=== PATIENT | male | born 1950 | race Caucasian/White ===

== ENCOUNTER 2018-03-20 14:00 | Emergency (ER) | payer MEDICARE, OTHER ==
[~2018-03-20] VITALS: Ht 172.7 cm; Wt 55.0 kg
[2018-03-20 18:23] LABS: HEMATOCRIT. 28.8 % (42.0-52.0); HEMOGLOBIN. 9.5 g/dL (14.0-18.0); MEAN CORPUSCULAR HEMOGLOBIN 29.4 pg (28.0-32.0); MEAN CORPUSCULAR VOLUME 88.9 fL (80.0-94.0); PLATELET 535 x1000/uL (130-400); RED BLOOD CELL COUNT 3.23 mill/uL (4.7-6.1); RED CELL DISTRIBUTION WIDTH 16.3 % (11.6-14.6)
[2018-03-20 18:33] LABS: CHLORIDE 93 mEq/L (98-107)
[2018-03-20 18:58] LABS: HEPATITIS B SURFACE ANTIGEN NEGATIVE
[2018-03-20 19:17] LABS: CLARITY URINE CLEAR (CLEAR); COLOR URINE YELLOW (YELLOW); KETONES URINE NEGATIVE (NEGATIVE); LEUKOCYTE ESTERASE URINE NEGATIVE (NEGATIVE); NITRITE URINE NEGATIVE (NEGATIVE); OCCULT BLOOD URINE NEGATIVE (NEGATIVE); PH URINE 7.5 (4.5-8.0); PROTEIN URINE NEGATIVE (NEGATIVE)
[2018-03-20 19:26] LABS: HEPATITIS B CORE AB IGM NEGATIVE
[2018-03-20 19:28] LABS: HEPATITIS A AB IGM NEGATIVE (NEGATIVE)
[2018-03-20 19:29] LABS: *AMPHETAMINES SCREEN URINE NEGATIVE (NEGATIVE); *BARBITURATES SCREEN URINE NEGATIVE (NEGATIVE)
[2018-03-20 19:30] LABS: *BENZODIAZEPINES SCREEN URINE NEGATIVE (NEGATIVE); *COCAINE SCREEN URINE NEGATIVE (NEGATIVE); CANNABINOID URINE SCREEN NEGATIVE (NEGATIVE); METHADONE URINE SCREEN NEGATIVE (NEGATIVE); OPIATES URINE SCREEN NEGATIVE (NEGATIVE); PHENCYCLIDINE URINE SCREEN NEGATIVE (NEGATIVE)
[2018-03-20 20:26] LABS: PLATELET ESTIMATE INCREASED
[2018-03-21] MEDS ORDERED: ACETAMINOPHEN 325MG TABLET PO ONE (02:15)
[2018-03-21 16:45] VITALS: BP 147/92
== END 2018-03-21 17:18 ==
LOC: ER 15:03
DX: S05.12XA Contusion of eyeball and orbital tissues, left eye, initial encounter (principal); M25.512 Pain in left shoulder; Y04.2XXA Assault by strike against or bumped into by another person, initial encounter; Y93.89 Activity, other specified; Y92.410 Unspecified street and highway as the place of occurrence of the external cause; E86.0 Dehydration; E87.1 Hypo-osmolality and hyponatremia; R53.83 Other fatigue; D72.829 Elevated white blood cell count, unspecified; D64.9 Anemia, unspecified; R46.0 Very low level of personal hygiene; Z59.0 Homelessness; Z86.73 Personal history of transient ischemic attack (TIA), and cerebral infarction without residual deficits
CPT/HCPCS: 36415; 70450; 70486; 71045; 73030; 80053; 80305; 81003; 83036; 85025; 86705; 86709; 86803; 87340; 93005; 99285

== ENCOUNTER 2018-07-02 13:58 | Inpatient (IN) | payer MEDICARE, OTHER ==
[~2018-07-02] VITALS: Ht 170.2 cm; Wt 58.2 kg
[2018-07-02] MEDS ORDERED: LORAZEPAM 2MG/ML CPJ IV ONE ×2 (16:00→19:00)
[2018-07-02] MEDS ORDERED: HALOPERIDOL LACTATE 5MG/ML VIAL IM ONE (16:00)
[2018-07-02 16:09] LABS: HEMATOCRIT. 32.3 % (42.0-52.0); HEMOGLOBIN. 10.5 g/dL (14.0-18.0); MEAN CORPUSCULAR HEMOGLOBIN 26.1 pg (28.0-32.0); MEAN CORPUSCULAR VOLUME 80.2 fL (80.0-94.0); MEAN PLATELET VOLUME 7.2 fl (7.4-10.4); PLATELET 446 x1000/uL (130-400); RED BLOOD CELL COUNT 4.03 mill/uL (4.7-6.1); RED CELL DISTRIBUTION WIDTH 18.3 % (11.6-14.6)
[2018-07-02 16:14] LABS: CHLORIDE 87 mEq/L (98-107)
[2018-07-02 16:17] LABS: INR 1.1; PROTHROMBIN TIME 10.6 sec (9.1-11.1)
[2018-07-02 16:19] LABS: ETHANOL BLOOD < 10 mg/dL
[2018-07-02 16:21] LABS: LDL CHOLESTEROL 119 mg/dL (5-100)
[2018-07-02] MEDS ORDERED: SODIUM CHLORIDE 0.9% 1,000 ML IV ONE (16:30)
[2018-07-02 16:57] LABS: PLATELET ESTIMATE NORMAL
[2018-07-02] MEDS ORDERED: ONDANSETRON HCL 4MG/2ML INJ IV PRN (17:30)
[2018-07-02] MEDS ORDERED: DOCUSATE SODIUM 100MG CAPSULE PO PRN (17:30)
[2018-07-02] MEDS ORDERED: MAGNESIUM/ALUMINUM HYDROXIDE/SIMETHICONE 30ML UDC PO PRN (17:30)
[2018-07-02] MEDS ORDERED: IPRATROPIUM/ALBUTEROL 0.5-3(2.5)MG/3ML NEB INH PRN (17:30)
[2018-07-02] MEDS ORDERED: NITROGLYCERIN 0.4MG TABLET SL SL PRN (17:30)
[2018-07-02] MEDS ORDERED: ACETAMINOPHEN 325MG TABLET PO PRN (17:30)
[2018-07-02] MEDS ORDERED: ZOLPIDEM TARTRATE 5MG TABLET PO PRN (21:00)
[2018-07-02] MEDS ORDERED: KETOROLAC 15MG/ML VIAL IV PRN (22:22)
[2018-07-02] MEDS ORDERED: GUAIFENESIN 200MG/10ML SUGAR FREE UDC PO PRN (22:22)
[2018-07-02] MEDS ORDERED: HALOPERIDOL LACTATE 5MG/ML VIAL IM PRN (22:22)
[2018-07-02 23:27] LABS: CLARITY URINE CLEAR (CLEAR); COLOR URINE YELLOW (YELLOW); KETONES URINE 1+ (NEGATIVE); LEUKOCYTE ESTERASE URINE TRACE (NEGATIVE); NITRITE URINE NEGATIVE (NEGATIVE); OCCULT BLOOD URINE NEGATIVE (NEGATIVE); PROTEIN URINE NEGATIVE (NEGATIVE); SPECIFIC GRAVITY URINE 1.015 (1.005-1.030); UROBILINOGEN URINE 0.2 E.U./dL (0.2-1.0)
[2018-07-02 23:48] LABS: *AMPHETAMINES SCREEN URINE NEGATIVE (NEGATIVE); *BARBITURATES SCREEN URINE NEGATIVE (NEGATIVE); *BENZODIAZEPINES SCREEN URINE NEGATIVE (NEGATIVE); *COCAINE SCREEN URINE NEGATIVE (NEGATIVE); CANNABINOID URINE SCREEN NEGATIVE (NEGATIVE); METHADONE URINE SCREEN NEGATIVE (NEGATIVE); OPIATES URINE SCREEN NEGATIVE (NEGATIVE)
[2018-07-02 23:54] LABS: CREATINE KINASE 577 IU/L (39-308)
[2018-07-02 23:54] LABS: PHENCYCLIDINE URINE SCREEN NEGATIVE (NEGATIVE)
[2018-07-02 23:55] LABS: CREATINE KINASE MB FRACTION 23.2 ng/mL (0.5-3.6)
[2018-07-03 06:47] VITALS: BP 169/96
[2018-07-03] MEDS ORDERED: LEVOTHYROXINE SODIUM 112MCG TABLET PO SCH (07:50)
[2018-07-03 08:00] VITALS: BP 184/101
[2018-07-03] MEDS ORDERED: NA PHOS,M-B/NA PHOS,DI-BA ENEMA 118ML PR PRN (09:00)
[2018-07-03] MEDS: ENOXAPARIN 40MG/0.4ML SYR SUBCUT SCH (09:21)
[2018-07-03] MEDS: ASPIRIN 325MG EC TABLET PO SCH (09:22)
[2018-07-03] MEDS: ZINC SULFATE 220 MG ( 50 ) CAPSULE PO SCH (09:22)
[2018-07-03] MEDS: FAMOTIDINE 20MG TABLET PO SCH ×2 (09:22→21:28)
[2018-07-03] MEDS: LISINOPRIL 20MG TABLET PO SCH ×2 (09:22→21:28)
[2018-07-03] MEDS: METOPROLOL TARTRATE 25MG TABLET PO SCH ×2 (09:22→21:27)
[2018-07-03] MEDS: ASCORBIC ACID 500 MG TABLET PO SCH ×2 (09:22→21:26)
[2018-07-03 10:51] VITALS: BP 169/96
[2018-07-03] MEDS ORDERED: MELA3TAB71 MT (11:10)
[2018-07-03] MEDS ORDERED: IBUP-2029 MT (11:10)
[2018-07-03] MEDS ORDERED: ACET5SOL2 PO (11:10)
[2018-07-03] MEDS ORDERED: FAMO20TA8 MT (11:10)
[2018-07-03] MEDS ORDERED: LEVO50TA MT (11:10)
[2018-07-03] MEDS ORDERED: LIDO700A30 TP (11:10)
[2018-07-03] MEDS ORDERED: ASPI-1159 MT (11:10)
[2018-07-03] MEDS ORDERED: DOCU-150 MT (11:10)
[2018-07-03] MEDS ORDERED: ACET-2178 MT (11:10)
[2018-07-03] MEDS: CEFTRIAXONE 1 G PREMIX 50 ML IV SCH (11:32)
[2018-07-03 12:00] VITALS: BP 112/75
[2018-07-03 16:00] VITALS: BP 143/89
[2018-07-03 17:40] LABS: CREATINE KINASE 411 IU/L (39-308)
[2018-07-03 17:41] LABS: CREATINE KINASE MB FRACTION 18.9 ng/mL (0.5-3.6)
[2018-07-03 20:00] VITALS: BP 158/88
[2018-07-03] MEDS: ATORVASTATIN CALCIUM 10MG TABLET PO SCH (21:26)
[2018-07-04 00:04] VITALS: BP 156/79
[2018-07-04 04:01] VITALS: BP 173/98
[2018-07-04] MEDS: LEVOTHYROXINE SODIUM 100MCG TABLET PO SCH (06:29)
[2018-07-04] MEDS: CLONIDINE 0.1MG TABLET PO PRN (06:31)
[2018-07-04 08:03] LABS: CHLORIDE 90 mEq/L (98-107)
[2018-07-04 09:00] VITALS: BP 156/98
[2018-07-04] MEDS: ASPIRIN 325MG EC TABLET PO SCH (09:40)
[2018-07-04] MEDS: LISINOPRIL 20MG TABLET PO SCH ×2 (09:40→21:21)
[2018-07-04] MEDS: ZINC SULFATE 220 MG ( 50 ) CAPSULE PO SCH (09:40)
[2018-07-04] MEDS: FAMOTIDINE 20MG TABLET PO SCH ×2 (09:40→21:21)
[2018-07-04] MEDS: METOPROLOL TARTRATE 25MG TABLET PO SCH ×2 (09:41→21:21)
[2018-07-04] MEDS: ASCORBIC ACID 500 MG TABLET PO SCH ×2 (09:41→21:18)
[2018-07-04] MEDS: ENOXAPARIN 40MG/0.4ML SYR SUBCUT SCH (09:44)
[2018-07-04 12:00] VITALS: BP 137/89
[2018-07-04] MEDS: CEFTRIAXONE 1 G PREMIX 50 ML IV SCH (13:05)
[2018-07-04 16:30] VITALS: BP 132/85
[2018-07-04 20:48] VITALS: BP 176/99
[2018-07-04] MEDS: ATORVASTATIN CALCIUM 10MG TABLET PO SCH (21:18)
[2018-07-05] VITALS: BP 142/94
[2018-07-05] MEDS: CLONIDINE 0.1MG TABLET PO PRN (00:35)
[2018-07-05 00:43] VITALS: BP 187/109
[2018-07-05 04:00] VITALS: BP 142/94
[2018-07-05] MEDS: LEVOTHYROXINE SODIUM 100MCG TABLET PO SCH (06:36)
[2018-07-05 08:00] VITALS: BP 158/96
[2018-07-05] MEDS: ZINC SULFATE 220 MG ( 50 ) CAPSULE PO SCH (08:38)
[2018-07-05] MEDS: ASPIRIN 325MG EC TABLET PO SCH (08:38)
[2018-07-05] MEDS: ASCORBIC ACID 500 MG TABLET PO SCH (08:38)
[2018-07-05] MEDS: METOPROLOL TARTRATE 25MG TABLET PO SCH (08:39)
[2018-07-05] MEDS: ENOXAPARIN 40MG/0.4ML SYR SUBCUT SCH (08:39)
[2018-07-05] MEDS: LISINOPRIL 20MG TABLET PO SCH (08:39)
[2018-07-05] MEDS: FAMOTIDINE 20MG TABLET PO SCH (09:00)
[2018-07-05] MEDS: CEFTRIAXONE 1 G PREMIX 50 ML IV SCH (11:19)
[2018-07-05 11:36] VITALS: BP 149/89
== END 2018-07-05 13:56 | DRG 689 ==
LOC: ER 13:58 → 6WST 17:07 → EDBEDREQ 17:14 → EDBEDREQSVC 17:14 → EDBEDREQTM 17:14 → ENRESERV 07-03 02:39 → CANBEDREQ 07-03 07:30
PROVIDERS: ADMIT Internal Medicine; ATTEND Internal Medicine
DX: N39.0 Urinary tract infection, site not specified (principal); G92 Toxic encephalopathy; E87.1 Hypo-osmolality and hyponatremia; L97.929 Non-pressure chronic ulcer of unspecified part of left lower leg with unspecified severity; L97.919 Non-pressure chronic ulcer of unspecified part of right lower leg with unspecified severity; S80.812A Abrasion, left lower leg, initial encounter; S80.811A Abrasion, right lower leg, initial encounter; E78.00 Pure hypercholesterolemia, unspecified; I10 Essential (primary) hypertension; E03.9 Hypothyroidism, unspecified; D64.9 Anemia, unspecified; S51.012A Laceration without foreign body of left elbow, initial encounter; S71.111A Laceration without foreign body, right thigh, initial encounter; X58.XXXA Exposure to other specified factors, initial encounter; Y93.89 Activity, other specified; Y92.89 Other specified places as the place of occurrence of the external cause; Z86.73 Personal history of transient ischemic attack (TIA), and cerebral infarction without residual deficits; Y99.8 Other external cause status
CPT/HCPCS: 36415; 70551; 71045; 80048; 80305; 82140; 82550; 82553; 82962; 83036; 83721; 84134; 84443; 84484; 93005; 93970; 96372; 96374; 99291; A6261; G0482; J0696; J1630; J1650; J2060; J7030; J7050

== ENCOUNTER 2018-07-31 18:49 | Emergency (ER) | payer MEDICARE, OTHER ==
[~2018-07-31] VITALS: Ht 180.3 cm; Wt 64.0 kg
[~2018-07-31 18:49] MED LIST: ACET-2178 MT; ACET5SOL2 PO; ASPI-1159 MT; DOCU-150 MT; FAMO20TA8 MT; IBUP-2029 MT; LEVO50TA MT; LIDO700A30 TP; MELA3TAB71 MT
[2018-07-31 18:52] VITALS: BP 0/0
[2018-07-31] MEDS ORDERED: DOPAMINE 400MG/250ML PREMIX 250 ML IV ONE (19:05)
[2018-07-31] MEDS ORDERED: EPINEPHRINE 0.1MG/ML (1:10,000) 10ML SYR ONE ×2 (19:06→19:18)
== END 2018-07-31 19:12 | disposition expired ==
LOC: ER 18:49
DX: I46.9 Cardiac arrest, cause unspecified (principal); D64.9 Anemia, unspecified; K21.9 Gastro-esophageal reflux disease without esophagitis; E78.00 Pure hypercholesterolemia, unspecified; I10 Essential (primary) hypertension; E03.9 Hypothyroidism, unspecified; Z86.73 Personal history of transient ischemic attack (TIA), and cerebral infarction without residual deficits; Z79.82 Long term (current) use of aspirin; Z79.899 Other long term (current) drug therapy
CPT/HCPCS: 92950; 99291; J1265; J3490